=== PATIENT | male | born 1955 | race Caucasian/White ===

== ENCOUNTER 2025-02-05 06:27 | Day surgery (SDC) | payer MEDICARE, MEDICAID ==
[2025-02-05] MEDS: Lactated Ringers 1,000 ML IV SCH (07:06)
[2025-02-05] MEDS ORDERED: fentaNYL 50 MCG/ML SDV ONE (07:13)
[2025-02-05] MEDS ORDERED: Midazolam 1 MG/ML 2 ML SDV ONE (07:13)
[2025-02-05] MEDS ORDERED: Propofol 200 MG/20 ML SDV ONE (07:13)
[2025-02-05 09:01] VITALS: PULSE 54
[2025-02-05 09:10] VITALS: BP 109/68
== END 2025-02-05 09:15 | disposition home or self-care (01) ==
LOC: JP.SDS 06:27
PROVIDERS: ATTEND Surgery
DX: Z12.11 Encounter for screening for malignant neoplasm of colon (principal); Z86.0100 Personal history of colon polyps, unspecified; Z85.038 Personal history of other malignant neoplasm of large intestine; I12.9 Hypertensive chronic kidney disease with stage 1 through stage 4 chronic kidney disease, or unspecified chronic kidney disease; E11.22 Type 2 diabetes mellitus with diabetic chronic kidney disease; N18.30 Chronic kidney disease, stage 3 unspecified
CPT/HCPCS: G0105; J2250; J2704; J3010; J7120; 00812-QZ